=== PATIENT | female | born 1985 | race African-American/Black ===

== ENCOUNTER 2018-08-03 18:28 | Inpatient (IN) | payer MEDICAID ==
[~2018-08-03] VITALS: Ht 165.1 cm; Wt 68.0 kg
[~2018-08-03 18:28] MED LIST: IBUPROFEN; TELM20TA2
[2018-08-03] MEDS ORDERED: SODIUM CHLORIDE 0.9% 1,000 ML IV ONE (20:16)
[2018-08-03 20:50] LABS: BASOPHILS % 0.9 % (0.0-2.0); EOSINOPHILS % 0.6 % (0.0-5.0); HEMATOCRIT. 39.8 % (36.0-48.0); HEMOGLOBIN. 13.6 g/dL (12.0-16.0); LYMPHOCYTES % 20.3 % (20.0-50.0); MEAN CORPUSCULAR HEMOGLOBIN 29.8 pg (28.0-32.0); MEAN CORPUSCULAR VOLUME 87.6 fL (81.0-99.0); MEAN PLATELET VOLUME 7.7 fl (7.4-10.4); MONOCYTES % 6.6 % (2.0-8.0); NEUTROPHILS % 71.6 % (40.0-76.0); PLATELET 302 x1000/uL (130-400); RED BLOOD CELL COUNT 4.55 mill/uL (4.2-5.4)
[2018-08-03 20:56] LABS: CHLORIDE 105 mEq/L (98-107)
[2018-08-03 20:58] LABS: INR 1.1; PROTHROMBIN TIME 10.6 sec (9.1-11.1)
[2018-08-03 21:00] LABS: ETHANOL BLOOD < 10 mg/dL
[2018-08-03 21:08] LABS: HCG SCREEN NEGATIVE
[2018-08-04 00:10] LABS: CLARITY URINE CLEAR (CLEAR); COLOR URINE YELLOW (YELLOW); KETONES URINE TRACE (NEGATIVE); LEUKOCYTE ESTERASE URINE NEGATIVE (NEGATIVE); NITRITE URINE NEGATIVE (NEGATIVE); OCCULT BLOOD URINE NEGATIVE (NEGATIVE); PH URINE 7.5 (4.5-8.0); PROTEIN URINE NEGATIVE (NEGATIVE); SPECIFIC GRAVITY URINE 1.007 (1.005-1.030); UROBILINOGEN URINE 0.2 E.U./dL (0.2-1.0)
[2018-08-04 00:26] LABS: *AMPHETAMINES SCREEN URINE NEGATIVE (NEGATIVE); *BARBITURATES SCREEN URINE NEGATIVE (NEGATIVE); *BENZODIAZEPINES SCREEN URINE NEGATIVE (NEGATIVE); *COCAINE SCREEN URINE NEGATIVE (NEGATIVE); CANNABINOID URINE SCREEN NEGATIVE (NEGATIVE); METHADONE URINE SCREEN NEGATIVE (NEGATIVE); PHENCYCLIDINE URINE SCREEN NEGATIVE (NEGATIVE)
[2018-08-04 00:27] LABS: OPIATES URINE SCREEN NEGATIVE (NEGATIVE)
[2018-08-04] MEDS ORDERED: MECLIZINE 25MG TABLET PO ONE (00:45)
[2018-08-04] MEDS ORDERED: MAGNESIUM/ALUMINUM HYDROXIDE/SIMETHICONE 30ML UDC PO PRN (04:30)
[2018-08-04] MEDS ORDERED: DIPHENHYDRAMINE 50MG/ML VIAL IV PRN (04:30)
[2018-08-04] MEDS ORDERED: ACETAMINOPHEN 325MG TABLET PO PRN (04:30)
[2018-08-04] MEDS ORDERED: CLONIDINE 0.1MG TABLET PO PRN (04:30)
[2018-08-04] MEDS ORDERED: ONDANSETRON HCL 4MG/2ML INJ IV PRN (04:30)
[2018-08-04] MEDS: SODIUM CHLORIDE 0.9% INJ 3ML FLUSH IVF SCH ×2 (06:27→14:00)
[2018-08-04 09:40] VITALS: BP 123/94
[2018-08-04 10:00] VITALS: BP 123/94
[2018-08-04 12:00] VITALS: BP 139/96
[2018-08-04 16:00] VITALS: BP 126/92
[2018-08-04] MEDS ORDERED: thyroid (16:46)
[2018-08-04] MEDS ORDERED: FERR325T6 MT (16:46)
[2018-08-04] MEDS ORDERED: ALBU6.7H9 INH (16:46)
[2018-08-04] MEDS ORDERED: IBUP-2030 MT (16:46)
[2018-08-04] MEDS ORDERED: HYDR12.529 MT (16:46)
[2018-08-04] MEDS ORDERED: MULT-1146 MT (16:46)
[2018-08-04] MEDS ORDERED: ASPI-1159 MT (16:46)
[2018-08-04] MEDS ORDERED: BIOT1CAP3 MT (16:46)
[2018-08-04] MEDS ORDERED: [UNRECOGNIZED DRUG - CODE] MT (16:46)
[2018-08-04] MEDS ORDERED: LEVOFLOXACIN 500MG TABLET PO NR (17:30)
[2018-08-04 18:44] VITALS: BP 123/94
== END 2018-08-04 20:46 | disposition home or self-care (01) | DRG 463 ==
LOC: ER 22:30 → 6EST 08-04 01:57 → EDBEDREQTM 08-04 02:10 → EDBEDREQ 08-04 02:10 → ENRESERV 08-04 08:57
PROVIDERS: ADMIT Internal Medicine; ATTEND Internal Medicine
DX: N30.00 Acute cystitis without hematuria (principal); I11.0 Hypertensive heart disease with heart failure; I50.9 Heart failure, unspecified; F17.210 Nicotine dependence, cigarettes, uncomplicated; J45.909 Unspecified asthma, uncomplicated; Z86.73 Personal history of transient ischemic attack (TIA), and cerebral infarction without residual deficits; Z82.49 Family history of ischemic heart disease and other diseases of the circulatory system; Z87.440 Personal history of urinary (tract) infections; Z98.891 History of uterine scar from previous surgery; Z79.82 Long term (current) use of aspirin; Z79.899 Other long term (current) drug therapy
CPT/HCPCS: 36415; 70450; 70551; 71045; 80053; 80305; 81003; 83605; 83690; 83880; 84484; 84703; 85025; 85610; 87086; 93005; G0482; J7030; J8597

== ENCOUNTER 2022-05-25 10:29 | Emergency (ER) | payer MEDICAID ==
[~2022-05-25] VITALS: Ht 162.6 cm; Wt 66.0 kg
[~2022-05-25 10:29] MED LIST changes: +ALBU6.7H9 INH; +ASPI-1497 MT; +BIOT1CAP3 MT; +FERR325T6 MT; +HYDR12.529 MT; +IBUP-2030 MT; +MULT-1146 MT; +[UNRECOGNIZED DRUG - CODE] MT; +thyroid
[2022-05-25 12:18] LABS: CLARITY URINE CLOUDY (CLEAR); COLOR URINE YELLOW (YELLOW); KETONES URINE TRACE (NEGATIVE); LEUKOCYTE ESTERASE URINE TRACE (NEGATIVE); NITRITE URINE NEGATIVE (NEGATIVE); OCCULT BLOOD URINE 1+ (NEGATIVE); PH URINE 5.5 (4.5-8.0); PROTEIN URINE TRACE (NEGATIVE); SPECIFIC GRAVITY URINE 1.029 (1.005-1.030)
[2022-05-25 13:00] VITALS: BP 118/83
[2022-05-27 04:11] LABS: NEISSERIA GONORRHOEAE NAA Negative (Negative)
== END 2022-05-25 13:56 | disposition left against medical advice (07) ==
LOC: ER 10:29
DX: R10.2 Pelvic and perineal pain (principal); T74.21XA Adult sexual abuse, confirmed, initial encounter; X58.XXXA Exposure to other specified factors, initial encounter; J45.909 Unspecified asthma, uncomplicated; I10 Essential (primary) hypertension; Z98.890 Other specified postprocedural states; Z79.899 Other long term (current) drug therapy
CPT/HCPCS: 81003; 81025; 87491; 87591; 99283